=== PATIENT | female | born 1980 | race Hispanic/Latino ===

== ENCOUNTER 2017-11-01 00:40 | Observation (INO) | payer SELFPAY ==
[~2017-11-01] VITALS: Ht 167.6 cm; Wt 91.2 kg
[2017-11-01] VITALS (25 sets, daily range): BP systolic 78–131; BP diastolic 40–84
[2017-11-01 01:12] LABS: BASOPHILS % (AUTO) 0.4 % (0.0-5.0); EOSINOPHILS % (AUTO) 0.9 % (0.0-8.0); HEMATOCRIT 39.9 % (36-48); LYMPHOCYTES % (AUTO) 17.9 % (21.0-51.0); MEAN CORPUSCULAR HEMOGLOBIN 27.1 pg (27.0-33.0); MEAN CORPUSCULAR HGB CONC 33.7 g/dL (32.0-36.0); MEAN CORPUSCULAR VOLUME 80.5 fL (79-99); MONOCYTES % (AUTO) 7.3 % (3.0-13.0); NEUTROPHILS % (AUTO) 73.5 % (40.0-77.0); PLATELET COUNT (AUTO) 207 K/uL (130-400); RED BLOOD CELL COUNT(AUTO) 4.96 MIL/uL (4.00-5.50); WHITE BLOOD COUNT (AUTO) 13.4 K/uL (4.8-10.8)
[2017-11-01] MEDS ORDERED: IBUPROFEN 600 MG TABLET ONE (01:18)
[2017-11-01] MEDS ORDERED: FAMOTIDINE 20MG TAB 20 MG TAB ONE (01:18)
[2017-11-01] MEDS ORDERED: DICYCLOMINE HCL 10 MG/ML 2ML AMP IM ONE (01:18)
[2017-11-01 01:21] LABS: CREATININE 0.8 mg/dL (0.5-1.5)
[2017-11-01 01:27] LABS: ALBUMIN 3.9 g/dL (3.5-5.0); BILIRUBIN,TOTAL 0.4 mg/dL (0.2-1.0); TOTAL PROTEIN, SERUM 7.9 g/dL (6.0-8.3)
[2017-11-01 03:02] LABS: APPEARANCE,URINE Cloudy (CLEAR); BILIRUBIN,URINE Negative (NEGATIVE); COLOR,URINE Yellow (YELLOW); GLUCOSE, URINE (UA) Negative (NEGATIVE); KETONES,URINE Trace mg/dL (NEGATIVE); LEUKOCYTE ESTERASE ,URINE Moderate (NEGATIVE); NITRATE,URINE Positive (NEGATIVE); OCCULT BLOOD,URINE Small (NEGATIVE); PROTEIN,URINE Negative (NEGATIVE)
[2017-11-01 03:10] LABS: BACTERIA,URINE Moderate /HPF (None Seen); HCG,QUAL RESULT NEGATIVE (NEGATIVE); MUCUS,URINE Many LPF (None Seen); SQUAMOUS EPITHELIAL CELL,UR Many /HPF (0-2)
[2017-11-01] MEDS ORDERED: IOPAMIDOL-370 75 ML VIAL IV ONE (03:13)
[2017-11-01] MEDS ORDERED: LACTATED RINGERS 1000ML 1,000 ML IV ONE (05:03)
[2017-11-01] MEDS ORDERED: LACTATED RINGERS 1000ML 1,000 ML IV SCH (06:00)
[2017-11-01] MEDS: CEFOXITIN SODIUM 2 GM VIAL IVP SCH ×2 (06:00→10:05)
[2017-11-01] MEDS ORDERED: MORPHINE SULFATE 2 MG/ML 1ML SYG IVP PRN (06:00)
[2017-11-01] MEDS ORDERED: ONDANSETRON HCL MDV 20ML 2 MG/ML VIAL IVP PRN (06:00)
[2017-11-01] MEDS ORDERED: PROPOFOL 10 MG/ML 20ML VIAL IV ONE (10:02)
[2017-11-01] MEDS ORDERED: MIDAZOLAM HCL 1 MG/ML 2ML VIAL ONE (10:02)
[2017-11-01] MEDS ORDERED: FENTANYL CITRATE PF 50 MCG/1 ML 2ML VIAL ONE (10:03)
[2017-11-01] MEDS ORDERED: ACETAMINOPHEN-CODEINE 300/30MG TAB PO PRN ×2 (11:15)
[2017-11-01] MEDS ORDERED: MORPHINE SULFATE 2 MG/ML 1ML SYG IV PRN (11:15)
[2017-11-01] MEDS: LACTATED RINGERS 1000ML 1,000 ML IV SCH ×2 (11:25→13:02)
[2017-11-01] MEDS: ONDANSETRON HCL MDV 20ML 2 MG/ML VIAL IVP PRN ×2 (12:46→15:08)
[2017-11-01] MEDS: MORPHINE SULFATE 4 MG/1ML SYG IV PRN ×2 (12:53→20:15)
[2017-11-01] MEDS ORDERED: CEFOXITIN 1GM+NS 100ML 100 ML IV SCH (16:00)
[2017-11-01] MEDS: CEFOXITIN SODIUM 1 GM VIAL IVP SCH ×2 (16:06→22:28)
[2017-11-02] VITALS: BP 134/70
[2017-11-02] MEDS: LACTATED RINGERS 1000ML 1,000 ML IV SCH (00:34)
[2017-11-02 04:00] VITALS: BP 130/61
[2017-11-02] MEDS: CEFOXITIN SODIUM 2 GM VIAL IVP SCH (06:00)
[2017-11-02 07:30] VITALS: BP 137/61
[2017-11-02] MEDS ORDERED: ACET1TAB12 PO (08:59)
== END 2017-11-02 11:54 | disposition home or self-care (01) ==
LOC: EDH 00:40 → EDHIP 00:41 → 4BH 12:20
PROVIDERS: ADMIT Surgery; ATTEND Surgery
DX: K35.80 Unspecified acute appendicitis (principal); Z98.51 Tubal ligation status
CPT/HCPCS: 36415; 44950; 74177; 80053; 81001; 81025; 83690; 85025; 88304; 96374; 96375; 96376; 99285; A4218 ×2; A4450; A4452; A4930; G0378 ×35; J0500; J0694 ×3; J2250; J2270 ×2; J2704; J3010; J7120 ×4; Q9967

== ENCOUNTER 2018-01-04 14:07 | Emergency (ER) | payer SELFPAY ==
[~2018-01-04 14:07] MED LIST: ACET1TAB12 PO
== END 2018-01-04 14:32 | disposition home or self-care (01) ==
LOC: EDH 14:07
DX: L03.114 Cellulitis of left upper limb (principal); Z90.49 Acquired absence of other specified parts of digestive tract

== ENCOUNTER 2018-12-20 12:20 | Emergency (ER) | payer OTHER ==
[2018-12-20 12:50] LABS: APPEARANCE,URINE SL CLOUDY (CLEAR); BASOPHILS % (AUTO) 0.5 % (0.0-5.0); BILIRUBIN,URINE NEGATIVE (NEGATIVE); COLOR,URINE YELLOW (YELLOW); EOSINOPHILS % (AUTO) 0.3 % (0.0-8.0); GLUCOSE, URINE (UA) NEGATIVE (NEGATIVE); KETONES,URINE NEGATIVE (NEGATIVE); LEUKOCYTE ESTERASE ,URINE TRACE (NEGATIVE); MEAN CORPUSCULAR HEMOGLOBIN 27.1 pg (27.0-33.0); MEAN CORPUSCULAR HGB CONC 33.6 g/dL (32.0-36.0); MEAN CORPUSCULAR VOLUME 80.7 fL (79-99); MONOCYTES % (AUTO) 5.7 % (3.0-13.0); NEUTROPHILS % (AUTO) 80.5 % (40.0-77.0); NITRATE,URINE NEGATIVE (NEGATIVE); OCCULT BLOOD,URINE SMALL (NEGATIVE); PLATELET COUNT (AUTO) 219 K/uL (130-400); PROTEIN,URINE NEGATIVE (NEGATIVE); RED BLOOD CELL COUNT(AUTO) 4.96 MIL/uL (4.00-5.50); RED CELL DISTRIBUTION WIDTH 14.1 % (11.0-15.5); UROBILINOGEN,URINE 0.2 mg/dL (0.2-1.0); WHITE BLOOD COUNT (AUTO) 9.5 K/uL (4.8-10.8)
[2018-12-20 12:53] LABS: HCG,QUAL RESULT NEGATIVE (NEGATIVE)
[2018-12-20 13:02] LABS: INR 0.92 (0.85-1.15); PARTIAL THROMBOPLASTIN TIME 27.5 SEC (26.3-35.5); PROTHROMBIN TIME 9.7 SEC (9.6-11.6)
[2018-12-20] MEDS ORDERED: MAG HYDROX/AL HYDROX/SIMETH ES 30 ML SUSP UDCUP ONE (13:04)
[2018-12-20] MEDS ORDERED: LIDOCAINE HCL 2% VISCOUS 15 ML UDCUP ONE (13:04)
[2018-12-20 13:15] LABS: BACTERIA,URINE Moderate /HPF (None Seen); RBC,URINE 0-1 /HPF (0-1); SQUAMOUS EPITHELIAL CELL,UR Moderate /HPF (0-2)
[2018-12-20] MEDS ORDERED: LEVOFLOXACIN 750 MG/D5W 150 ML 150 ML ONE (14:05)
[2018-12-20 14:06] LABS: CREATININE 0.9 mg/dL (0.5-1.5); POTASSIUM 4.1 mmol/L (3.5-5.1)
[2018-12-20] MEDS ORDERED: SODIUM CHLORIDE 0.9% 1000ML 1,000 ML IV ONE (14:06)
[2018-12-20] MEDS ORDERED: FAMOTIDINE/PF 20 MG/2 ML VIAL IV ONE (14:06)
[2018-12-20 14:22] LABS: ALBUMIN 4.1 g/dL (3.5-5.0); BILIRUBIN,TOTAL 0.3 mg/dL (0.2-1.0); TOTAL PROTEIN, SERUM 7.9 g/dL (6.0-8.3)
[2018-12-20] MEDS ORDERED: ACETAMINOPHEN 325 MG TAB ONE (14:54)
[2018-12-20] MEDS ORDERED: HYOSCYAMINE SULFATE 0.125 MG TAB.SUBL SL ONE (15:24)
== END 2018-12-20 16:17 | disposition home or self-care (01) ==
LOC: EDH 12:20
DX: N39.0 Urinary tract infection, site not specified (principal); R03.0 Elevated blood-pressure reading, without diagnosis of hypertension; Z90.49 Acquired absence of other specified parts of digestive tract
CPT/HCPCS: 36415; 71045; 74176; 80053; 81001; 81025; 82150; 82550; 83690; 84484; 85025; 85610; 85730; 86677; 87088; 93005; 96365; 96366; 96375; 99285; J1956; J3490; J7030; 96374

== ENCOUNTER 2024-07-26 13:09 | Emergency (ER) | payer OTHER ==
[~2024-07-26] VITALS: Ht 165.1 cm; Wt 99.8 kg
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
[2024-07-26] MEDS ORDERED: ketOROlac 15MG/ML VIAL (15MG/ML) IV ONE (13:30)
--- NOTE | 2024-07-26 13:30 | NUR ---
PT IS WEARING C-COLLAR PLACED BY EMS, STATES SHE WOULD PREFER TO NOT HAVE IV AT THIS TIME UNLESS FURTHER NECESSARY. WAS ADVISED THAT THERE WERE MEDS ORDERED FOR HER IV AND SHE STATES SHES OK WITH WAITING SHE HAS NOT HAD ANYTHING TO EAT YET AND DOES NOT WANT TO RISK FEELING ILL IF SHE TAKES MEDS AT THIS TIME
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
[2024-07-26] MEDS ORDERED: NAPR-1196 PO (14:41)
[2024-07-26 14:45] VITALS: BP 147/89; PULSE 92; RESP 18; TEMP 98.1; O2SAT 97
== END 2024-07-26 14:58 | disposition home or self-care (01) ==
LOC: EDH 13:09
DX: S13.4XXA Sprain of ligaments of cervical spine, initial encounter (principal); Z98.51 Tubal ligation status; V89.2XXA Person injured in unspecified motor-vehicle accident, traffic, initial encounter; Y93.89 Activity, other specified; Y92.89 Other specified places as the place of occurrence of the external cause; Y99.8 Other external cause status
CPT/HCPCS: 71045; 72125; 99284; J1885

== ENCOUNTER 2025-02-07 22:43 | Emergency (ER) | payer SELFPAY ==
[~2025-02-07] VITALS: Ht 167.6 cm; Wt 114.3 kg
[~2025-02-07 22:43] MED LIST changes: +NAPR-1196 PO
--- NOTE | 2025-02-07 23:10 | NUR ---
ICE PACK APPLIED TO LEFT ANKLE AND RIGHT LOWER LEG
--- NOTE | 2025-02-08 00:13 | ERN ---
General Chief Complaint: Mechanical Fall Stated Complaint: BACK PAIN, RT LOWER LEG, LEFT FOOT PAIN AFTER FA Time Seen by MD: 22:48 History of Present Illness Initial Comments 44-year-old female who comes in with a chief complaint of mechanical fall. Patient reports that she slipped at [facility] over some spilled apple juice. Patient reports falling and hurting her left foot right leg and lower back. Patient has no other complaints but is morbidly obese. Allergies: Coded Allergies: No Known Drug Allergies (Verified Allergy, Unknown, 11/01/17) Home Meds Active Scripts Naproxen (Naproxen) 250 Mg Tablet, 250 MG PO BID for 5 Days, #10 TAB Prov:TRINITY SIMS MD 07/26/24 Acetaminophen with Codeine (Tylenol with Codeine #3 Tablet) 1 Each Tablet, 1-2 TAB PO Q4HPRN PRN for PAIN LEVEL 6 TO 10, #40 TAB Prov:DENISHA WEISS MD 11/02/17 Past Medical History Past Medical History: No Pertinent History Past Surgical History: None Female( History) LMP: Jan 25, 2025 ROS Dictation Constitutional: Negative for fever,chills, and weight loss Eyes: Negative for injury, pain,redness, and discharge ENT: Negative for injury,pain or swelling Cardiovascular: Negative for chest pain, palpitations, and edema Respiratory: Negative for shortness of breath, cough, and wheezing, Abdomen/GI: Negative for abdominal pain, nausea, vomiting, diarrhea, and constipation Back: Positive for back pain : Negative for injury, bleeding and discharge MS/Extremity: Positive for leg and foot pain Skin: Negative for rash, and discoloration Neuro: Negative for headache, weakness, numbness, tingling, and seizure Psych: Negative for suicide ideation, homicidal ideation, and hallucinations Physical Exam Physical Exam Dictation General: awake, alert, NAD Head/Face: Normocephalic, atraumatic Eyes: PERRL, EOMI, vision at baseline ENT: oral cavity clear, TMs clear, no signs of infection Neck: Trachea midline, supple, no nuchal rigidity Cardiovascular: RRR, normal S1/S2, No MRGs, no JVD Respiratory: CTAB, no respiratory distress, No rales or wheezes Abdomen: Soft, non-tender, non-distended, normal bowel sounds, no guarding or rebound. Skin: Warm, dry, normal turgor, no rash MS/Extremity: Pulses equal, no cyanosis, neurovascular intact, FROM Neuro: COAx4, GCS 15, strength 5/5, CN 2-12 intact, normal cerebellar exam, normal gait, Psych: Normal behavior, mood, and affect normal MDM Patient did have imaging of her back leg and foot all which are negative for any acute abnormality. Advised patient to follow up with a primary care physician and consider a weight loss program MDM: Differential diagnosis: Mechanical fall Rationale: Tests considered and ordered secondary to shared decision making include: Previous outside records reviewed: Old ER visits. Risk of complication and/or morbidity or mortality of patient management: None Medications-Per medication reconciliation Need for hospitalization: Patient does not meet criteria for hospitalization. Need for emergency major/minor surgery: No There are no social concerns with this patient. Prescription drug management Prescriptions will include symptomatic care Patient's prior external medical records from other ER visits were reviewed by me as indicated. Prior testing and results from previous visits were reviewed. Prior tests were taken into account with medical decision making and resource utilization, independent historian/historians were used to obtain complete medical history. I independently interpreted the test that were performed, results were reviewed by me and considered findings on radiology if ordered. Medical management and examination interpretation discussions were had by me with other qualified healthcare professionals as indicated for the patient's care. ED Course Orders Procedure Category Date Status Time Lumbar Spine 2-3vws RAD 02/07/25 Resulted 23:09 Foot Comp 3+Vws Lt RAD 02/07/25 Resulted 23:09 Tibia/Fibula 2vws Rt RAD 02/07/25 Resulted 23:09 Ketorolac 60mg/2ml PHA 02/07/25 Complete (Toradol 60mg/2ml) 23:30 Current Medications Medications (Trade) Dose Ordered Sig/Azra Route PRN Reason Start Time Stop Time Status Last Admin Dose Admin Ketorolac Tromethamine (toRADol 60MG/ 2ML) 30 mg ONCE ONCE IM 02/07/25 23:30 02/07/25 23:31 DC 02/07/25 23:46 Vital Signs Date Time Temp Pulse Resp B/P (MAP) Pulse Ox O2 Delivery O2 Flow Rate FiO2 02/07/25 23:22 99.0 100 20 188/92 99 Room Air* 0 21 02/07/25 23:00 99.0 100 20 209/102 99 Room Air* 0 21 02/07/25 22:45 99.0 101 20 209/102 99 Room Air DX & DISP Disposition: Discharge Departure Impression: Primary Impression: Accident due to mechanical fall without injury Condition: Stable Additional Instructions: Please follow up with the primary care physician to establish care. Referrals: SELF,REFERRAL (PCP) BRISEIDA HAM MD Feb 08, 2025 00:13
--- NOTE | 2025-02-08 00:25 | HMCIMG ---
EXAM: CR Lumbar Spine, 3 views. CLINICAL HISTORY: Pain. COMPARISON: None provided. FINDINGS: Subtle levocurvature of the lumbar spine. Mild spondylosis. The intervertebral disc spaces are maintained. Normal vertebral body heights. No acute fracture. A component of mild constipation is present in the included colon. Presumed tiny pelvic phleboliths. IMPRESSION: No acute bony abnormality is evident. Subtle levocurvature of the lumbar spine. Mild spondylosis. /[place]
--- NOTE | 2025-02-08 00:29 | HMCIMG ---
EXAM: CR Left Foot, 3 views. CLINICAL HISTORY: Pain. COMPARISON: None provided. FINDINGS: No acute fracture or aggressive appearing osseous lesion. Joint spaces are within normal limits. Mild diffuse soft tissue swelling. Incidental bipartite medial sesamoid bone of the great toe. IMPRESSION: No acute bony abnormality is evident. Mild diffuse soft tissue swelling. /[place]
--- NOTE | 2025-02-08 00:34 | HMCIMG ---
EXAM: CR Right Tibia and Fibula, 2 views. CLINICAL HISTORY: Pain. COMPARISON: None provided. FINDINGS: No acute fracture or aggressive appearing osseous lesion. Joint spaces are within normal limits. The soft tissues are unremarkable. IMPRESSION: No acute bony abnormality is evident. /[place]
[2025-02-08] MEDS: LISINOPRIL 20 MG TABLET PO ONE (03:03)
--- NOTE | 2025-02-08 04:16 | NUR ---
PATIENT SIGNED AMA AND LEFT ER WITH SIGNIFICANT OTHER.
[2025-02-08 04:18] VITALS: BP 190/110; PULSE 86; RESP 18; TEMP 98.2; O2SAT 98
== END 2025-02-08 04:15 | disposition left against medical advice (07) ==
LOC: EDH 22:43
DX: M79.661 Pain in right lower leg (principal); M54.50 Low back pain, unspecified; W18.39XA Other fall on same level, initial encounter; Y93.89 Activity, other specified; Y92.89 Other specified places as the place of occurrence of the external cause; Y99.8 Other external cause status
CPT/HCPCS: 99285; 73630; 72100; 73590; 96372; J1885